=== PATIENT | female | born 2000 | race Caucasian/White ===

== ENCOUNTER → 2024-03-11 | Outpatient (REF) | LOC: M EMP 08:10 | PROVIDERS: ATTEND Family Medicine | DX: Z01.89 Encounter for other specified special examinations (principal) ==

== ENCOUNTER → 2024-10-09 | Outpatient (CLI) | payer OTHER | LOC: M PLAIMG 10:40 | PROVIDERS: ATTEND Physician Assistant | DX: R06.02 Shortness of breath (principal) ==

== ENCOUNTER → 2024-11-04 | Outpatient (CLI) | payer OTHER ==
[~2024-11-04] MED LIST: METHACHOLINE KIT (6 VIAL.NEB PREMIX) INH ONE
== END ==
LOC: M CARPUL 07:48
PROVIDERS: ATTEND Physician Assistant
DX: R06.02 Shortness of breath (principal)
CPT/HCPCS: 94070; 95070; J7674

== ENCOUNTER → 2025-02-12 | Outpatient (CLI) | payer OTHER | LOC: M SLEEP 20:00 | PROVIDERS: ATTEND Physician Assistant | DX: R06.83 Snoring (principal) ==